=== PATIENT | male | born 1970 | race Caucasian/White ===

== ENCOUNTER 2016-08-06 10:08 | Emergency (ER) | payer MEDICAID, SELFPAY ==
[~2016-08-06] VITALS: Ht 188 cm; Wt 81.6 kg
[2016-08-06] MEDS ORDERED: CEFTRIAXONE 1,000 MG in SODIUM CHLORIDE 0.9% 50 ML IVPB ONE (11:30)
[2016-08-06] MEDS ORDERED: ONDANSETRON 2MG/ML, 2ML IVPush ONE (11:30)
[2016-08-06] MEDS ORDERED: HYDROmorphone 1 MG/ML, 1ML IVPush PRN (11:30)
[2016-08-06] MEDS ORDERED: SODIUM CHLORIDE FLUSH 10ML SYR IVF ONE (11:30)
[2016-08-06 11:44] LABS: BLOOD UREA NITROGEN 10 mg/dL (7-18)
[2016-08-06] MEDS ORDERED: ONDANSETRON 2MG/ML, 2ML ONE (11:45)
[2016-08-06] MEDS ORDERED: HYDROmorphone 1 MG/ML, 1ML ONE (11:45)
[2016-08-06] MEDS ORDERED: IBUP200C PO (12:10)
[2016-08-06] MEDS ORDERED: OXYC-302 PO (12:12)
[2016-08-06 13:21] VITALS: BP 107/71
== END 2016-08-06 13:23 | disposition home or self-care (01) ==
LOC: ED 13:17
DX: S92.064A Nondisplaced intraarticular fracture of right calcaneus, initial encounter for closed fracture (principal); L03.115 Cellulitis of right lower limb; F12.10 Cannabis abuse, uncomplicated; X58.XXXA Exposure to other specified factors, initial encounter; Y93.89 Activity, other specified; Y92.009 Unspecified place in unspecified non-institutional (private) residence as the place of occurrence of the external cause; Y99.8 Other external cause status
CPT/HCPCS: 29515; 36415; 73610; 80048; 82040; 83605; 85025; 87040; 96365; 96375; 99285; J0696; J1170; J2405

== ENCOUNTER 2016-08-16 12:27 | Day surgery (SDC) | payer MEDICAID ==
[~2016-08-16] VITALS: Ht 188 cm; Wt 86.3 kg
[~2016-08-16 12:27] MED LIST: IBUP200C PO; OXYC-302 PO
[2016-08-16 12:57] VITALS: BP 105/75
[2016-08-16] MEDS ORDERED: MIDAZOLAM 1 MG/ML, 2ML ONE (13:34)
[2016-08-16] MEDS ORDERED: FENTANYL PF 250 MCG/5ML ONE (13:34)
[2016-08-16] MEDS ORDERED: ROPIvacaine/PF 0.5%, 30 ML ONE (13:38)
[2016-08-16] MEDS ORDERED: ROPIvacaine/PF 0.5%, 20 ML ONE (13:42)
[2016-08-16] MEDS ORDERED: DEXAMETHASONE 4 MG/ML, 1ML ONE (14:15)
[2016-08-16] MEDS ORDERED: SUCCINYLCHOLINE 20 MG/ML, 10ML ONE (14:15)
[2016-08-16] MEDS ORDERED: ONDANSETRON 2MG/ML, 2ML ONE (14:15)
[2016-08-16] MEDS ORDERED: ROCURONIUM 10 MG/ML ONE (14:15)
[2016-08-16] MEDS ORDERED: PROPOFOL 10 MG/ML, 20ML ONE (14:15)
[2016-08-16] MEDS ORDERED: CEFAZOLIN 1,000 MG ONE (14:15)
[2016-08-16] MEDS ORDERED: ROPIvacaine/PF 0.2%, 100ML 550 ML (check volume) INJ ONE (15:00)
[2016-08-16] MEDS ORDERED: BUPIVACAINE 0.25% INJ ONE (15:00)
[2016-08-16] MEDS ORDERED: hydrALAzine 20 MG/ML, 1ML IV PRN (16:00)
[2016-08-16] MEDS ORDERED: EPHEDRINE 50 MG/ML, 1ML IVPush PRN (16:00)
[2016-08-16] MEDS ORDERED: HYDROcodone/APAP 7.5-325MG/15ML UDC PO PRN (16:00)
[2016-08-16] MEDS ORDERED: LABETALOL 5MG/ML, 20ML IV PRN (16:00)
[2016-08-16] MEDS ORDERED: ONDANSETRON 2MG/ML, 2ML IVPush PRN (16:00)
[2016-08-16] MEDS ORDERED: HYDROmorphone 1 MG/ML, 1ML IV PRN (16:00)
[2016-08-16] MEDS ORDERED: OXYcodone 5 MG/5 ML ORAL.SOL UDC PO PRN (16:00)
[2016-08-16] MEDS ORDERED: PROMETHAZINE 25 MG/ML, 1ML IV PRN (16:00)
[2016-08-16] MEDS ORDERED: FENTANYL PF 100 MCG/2ML IV PRN (16:00)
[2016-08-16] MEDS ORDERED: MIDAZOLAM 1 MG/ML, 2ML IV PRN (16:00)
[2016-08-16] MEDS ORDERED: MEPERIDINE/PF 25MG/0.5ML IVPush PRN (16:00)
[2016-08-16] MEDS ORDERED: ACETAMINOPHEN 325 MG TABLET PO PRN (16:00)
[2016-08-16] MEDS ORDERED: FENTANYL PF 100 MCG/2ML ONE ×2 (16:36→17:33)
[2016-08-16] MEDS ORDERED: ACETAMINOPHEN 650 MG/20.3 ML UDC ONE (17:33)
[2016-08-16] MEDS ORDERED: OXYcodone 5 MG/5 ML ORAL.SOL UDC ONE (17:33)
[2016-08-16 19:24] VITALS: BP 110/73
== END 2016-08-16 19:35 | disposition home or self-care (01) ==
LOC: OUT 12:27 → 4NOR 12:45 → OUT 19:35
PROVIDERS: ATTEND Orthopaedic Surgery
DX: S92.001A Unspecified fracture of right calcaneus, initial encounter for closed fracture (principal); X58.XXXA Exposure to other specified factors, initial encounter; Y93.89 Activity, other specified; Y92.89 Other specified places as the place of occurrence of the external cause; Y99.8 Other external cause status; Z82.61 Family history of arthritis; Z98.890 Other specified postprocedural states
CPT/HCPCS: 28415; 73650; 76000; C1713; J0330; J0690; J1100; J2250; J2405; J2704; J2795; J3010; 76001